=== PATIENT | male | born 1975 | race Two or more races ===

== ENCOUNTER 2016-08-25 10:42 | Emergency (ER) | payer MEDICAID ==
--- NOTE | 2016-08-25 10:46 | EDM.PDOC ---
ED HISTORY OF PRESENT ILLNESS - General Chief Complaint: Respiratory Problem Stated Complaint: SOB, BACK/NECK HURT Time Seen by Provider: 08/25/16 10:46 Source of Information: Reports: Patient, RN, RN notes reviewed History Limitations: Reports: No limitations - History of Present Illness INITIAL COMMENTS - FREE TEXT/NARRATIVE: C/O onset of fever, mild frontal ELLISON, upper abdominal pain with nausea, and sore throat yesterday. No known sick contacts. Symptom Onset Date: 08/24/16 Timing/Duration: Reports: Constant, Getting worse Quality: Reports: Ache Improves with: Reports: None Worsens with: Reports: None Context, General: Denies: Activity, Exercise, Lifting, Sick contact, Trauma Associated Symptoms (General): Reports: no other symptoms Treatments MOUNTER SMOKING PIPE: Reports: Acetaminophen - Related Data Allergies/ADRs: Allergies Allergy/AdvReac Type Severity Reaction Status Date / Time No Known Allergies Allergy Verified 12/01/15 20:37 Home Meds: Home Meds . [No Known Home Meds] 12/01/15 [History] Past Medical History Musculoskeletal History: Reports: Arthritis - Infectious Disease History Infectious Disease History: Reports: Measles - Past Surgical History HEENT Surgical History: Reports: Tonsillectomy, Other (see below) Other HEENT Surgeries/Procedures: tubes in ears when young GI Surgical History: Reports: Appendectomy Musculoskeletal Surgical History: Reports: Carpal tunnel, Shoulder surgery Social & Family History - Family History Family Medical History: Noncontributory - Tobacco Use Smoking Status *Q: Never Smoker Second Hand Smoke Exposure: Yes - Alcohol Use Days Per Week of Alcohol Use: 1 Number of Drinks Per Day: 4 Total Drinks Per Week: 4 - Recreational Drug Use Recreational Drug Use: No - Living Situation & Occupation Living situation: Reports: with family Occupation: unemployed ED ROS GENERAL - Review of Systems Review Of Systems: ROS reveals no pertinent complaints other than HPI. ED EXAM, GENERAL - Physical Exam Exam: See Below Exam Limited By: No limitations General Appearance: alert, WD/WN, no apparent distress Eye Exam: bilateral eye: normal inspection Ears: normal external exam, normal canal, hearing grossly normal, normal TMs Nose: normal inspection, normal mucosa, no blood Throat/Mouth: Normal lips, Normal teeth, Normal gums, Other (pharyngeal erythema without exudates) Head: atraumatic, normocephalic Neck: normal inspection, supple, non-tender, full range of motion Respiratory/Chest: no respiratory distress, lungs clear, normal breath sounds, no accessory muscle use, chest non-tender Cardiovascular: regular rate, rhythm GI/Abdominal: normal bowel sounds, soft, non tender, no distention Back Exam: normal inspection Extremities: normal inspection Neurological: alert, oriented, CN II-XII intact, normal cognition, normal gait, no motor/sensory deficits Psychiatric: normal affect, normal mood Skin Exam: Warm, Dry, Intact, Normal color, No rash Course - Vital Signs Last Recorded V/S: Last Vital Signs Temp 36.1 C 08/25/16 10:48 Pulse 70 08/25/16 10:48 Resp 16 08/25/16 10:48 BP 144/102 H 08/25/16 10:48 Pulse Ox 99 08/25/16 10:48 - Orders/Labs/Meds Labs: Rapid strep: Positive Meds: Medications Discontinued Medications Generic Name Dose Route Start Last Admin Trade Name Freq PRN Reason Stop Dose Admin Penicillin G Procaine/Benzathine 1.2 millunits 08/25/16 11:28 08/25/16 11:38 Bicillin C-R 600/600 IM 08/25/16 11:29 1.2 millunits ONETIME ONE Administration Prednisone 60 mg 08/25/16 11:28 08/25/16 11:37 Prednisone PO 08/25/16 11:29 60 mg ONETIME ONE Administration Departure - Departure Time of Disposition: 11:29 Disposition: Home, Self-Care 01 Condition: good Clinical Impression: Strep pharyngitis Instructions: Strep Throat Forms: ED Department Discharge Additional Instructions: Rx: Amoxicillin 500mg Saltwater gargles. Follow up in clinic if no improving in 2 days.
[2016-08-25 10:49] VITALS: BP 144/102
[2016-08-25] MEDS ORDERED: Penicillin G Benzathine/Procaine 600-600 1.2 Millunits/2 ML Syringe IM ONE (11:28)
[2016-08-25] MEDS ORDERED: predniSONE 20 MG Tab PO ONE (11:28)
== END 2016-08-25 11:59 | disposition home or self-care (01) ==
LOC: DL.ED 10:42
DX: J02.0 Streptococcal pharyngitis (principal); M19.90 Unspecified osteoarthritis, unspecified site; Z98.890 Other specified postprocedural states; Z90.49 Acquired absence of other specified parts of digestive tract
CPT/HCPCS: 87430; 87804; 96372; 99284; A9270; J0558

== ENCOUNTER 2020-11-01 17:09 | Emergency (ER) | payer MEDICAID ==
[2020-11-01 19:12] VITALS: BP 163/109; PULSE 88
== END 2020-11-01 19:45 | disposition left against medical advice (07) ==
LOC: DL.ED 17:09
DX: J02.9 Acute pharyngitis, unspecified (principal); Z53.21 Procedure and treatment not carried out due to patient leaving prior to being seen by health care provider

== ENCOUNTER 2020-11-02 21:43 | Emergency (ER) | payer MEDICAID ==
--- NOTE | 2020-11-02 22:03 | EDM.PDOC ---
ED HPI GENERAL MEDICAL PROBLEM - General Chief Complaint: General Stated Complaint: SORE THROAT, RUNNY NOSE, BOIL ON BUTT PER PT Time Seen by Provider: 11/02/20 22:03 Source of Information: Reports: Patient, RN, RN Notes Reviewed History Limitations: Reports: No Limitations - History of Present Illness INITIAL COMMENTS - FREE TEXT/NARRATIVE: Patient is a 45-year-old male who presents to ER with complaint of cold symptoms that began yesterday. Patient states stuffy nose, nasal drainage, sore throat. Patient states yesterday he did have headache and body aches. States today that is improved. Patient denies being exposed to Covid, denies ever having Covid, and denies being vaccinated. Patient denies any fever, nausea, vomiting, diarrhea, chest pains, shortness of breath. Patient also complains of pain and tenderness around the rectal area. He states this began yesterday as well. Is unsure if he has a boil or a sore, or a rash. Onset Date: 11/01/20 - Related Data Allergies Allergy/AdvReac Type Severity Reaction Status Date / Time No Known Allergies Allergy Verified 11/02/20 21:57 Home Meds: Home Meds . [No Known Home Meds] 12/01/15 [History] Past Medical History Cardiovascular History: Reports: None Respiratory History: Reports: None Gastrointestinal History: Reports: None Genitourinary History: Reports: None Musculoskeletal History: Reports: Arthritis Neurological History: Reports: None Psychiatric History: Reports: None Endocrine/Metabolic History: Reports: None Hematologic History: Reports: None Immunologic History: Reports: None Oncologic (Cancer) History: Reports: None Dermatologic History: Reports: None - Infectious Disease History Infectious Disease History: Reports: Measles - Past Surgical History HEENT Surgical History: Reports: Tonsillectomy, Other (See Below) Other HEENT Surgeries/Procedures: tubes in ears when young Cardiovascular Surgical History: Reports: None GI Surgical History: Reports: Appendectomy Musculoskeletal Surgical History: Reports: Carpal Tunnel, Shoulder Surgery Social & Family History - Family History Family Medical History: No Pertinent Family History - Caffeine Use Caffeine Use: Reports: Coffee - Living Situation & Occupation Living situation: Reports: with Family Occupation: Unemployed ED ROS GENERAL - Review of Systems Review Of Systems: Comprehensive ROS is negative, except as noted in HPI. ED EXAM, GENERAL - Physical Exam Exam: See Below Exam Limited By: No Limitations General Appearance: Alert, WD/WN, No Apparent Distress Eye Exam: Bilateral Eye: EOMI, Normal Inspection Ears: Normal External Exam, Hearing Grossly Normal Nose: Normal Inspection, Nasal Drainage Throat/Mouth: Normal Inspection, Normal Voice, No Airway Compromise Head: Atraumatic, Normocephalic Neck: Normal Inspection, Supple, Non-Tender, Full Range of Motion Respiratory/Chest: No Respiratory Distress, Lungs Clear, Normal Breath Sounds, No Accessory Muscle Use, Chest Non-Tender Cardiovascular: Normal Peripheral Pulses, Regular Rate, Rhythm, No Edema, No Gallop, No JVD, No Murmur, No Rub Peripheral Pulses: 2+: Radial (L), Radial (R) GI/Abdominal: Normal Bowel Sounds, Soft, Non-Tender (Male) Exam: Deferred Rectal (Males) Exam: Other (No abscess noted, soft but slightly erythematous around the anus.). No: Hemorrhoids, Perirectal Abscess Back Exam: Normal Inspection, Full Range of Motion, NT Extremities: Normal Inspection, Normal Range of Motion, Non-Tender, Normal Capillary Refill, No Pedal Edema Neurological: Alert, Oriented, CN II-XII Intact, Normal Cognition, Normal Gait, Normal Reflexes, No Motor/Sensory Deficits Psychiatric: Normal Affect, Normal Mood Skin Exam: Warm, Dry, Intact, Normal Color, No Rash Lymphatic: No Adenopathy Course - Vital Signs Last Recorded V/S: Last Vital Signs Temp 98 F 11/02/20 21:57 Pulse 88 11/02/20 21:57 Resp 18 11/02/20 21:57 BP 159/99 H 11/02/20 21:57 Pulse Ox 98 11/02/20 21:57 - Orders/Labs/Meds Orders: Active Orders 24 hr Category Date Time Status CULTURE STREP A CONFIRMATION [RM] Stat Lab 11/02/20 22:20 Results STREP SCRN A RAPID W CULT CONF [RM] Stat Lab 11/02/20 22:20 Results Labs: Laboratory Tests 11/02/20 Range/Units 22:20 Influenza Type A RNA Negative (NEGATIVE) Influenza Type B RNA Negative (NEGATIVE) SARS-CoV-2 RNA (TANYA) Negative (NEGATIVE) Departure - Departure Time of Disposition: 23:15 Disposition: Home, Self-Care 01 Condition: Good Clinical Impression: Perirectal skin irritation, Viral upper respiratory illness - Discharge Information *PRESCRIPTION DRUG MONITORING PROGRAM REVIEWED*: No *COPY OF PRESCRIPTION DRUG MONITORING REPORT IN PATIENT RAFAEL: No Instructions: Upper Respiratory Infection, Adult, [id number], Viral Respiratory Infection, [id number] Forms: ED Department Discharge Additional Instructions: May use [id number] Preparation H cream or Desitin cream to the area as tolerated May use [id number] Sudafed or like decongestant as directed May use Tylenol and/or ibuprofen as directed for pain/fever Follow-up with your primary care provider in the clinic if no improvement Sepsis Event Note (ED) - Focused Exam Vital Signs: Vital Signs Temp Pulse Resp BP Pulse Ox 11/02/20 21:57 98 F 88 18 159/99 H 98 - My Orders Last 24 Hours: My Active Orders 11/02/20 22:20 CULTURE STREP A CONFIRMATION [RM] Stat STREP SCRN A RAPID W CULT CONF [] Stat - Assessment/Plan Last 24 Hours: My Active Orders 11/02/20 22:20 CULTURE STREP A CONFIRMATION [RM] Stat STREP SCRN A RAPID W CULT CONF [] Stat
[2020-11-02 22:08] VITALS: BP 159/99; PULSE 88
[2020-11-02 23:03] LABS: CORONAVIRUS COVID-19 NAA NEGATIVE (NEGATIVE)
== END 2020-11-02 23:20 | disposition home or self-care (01) ==
LOC: DL.ED 21:43
DX: J06.9 Acute upper respiratory infection, unspecified (principal); K62.89 Other specified diseases of anus and rectum; Z20.822 Contact with and (suspected) exposure to COVID-19
CPT/HCPCS: 0240U; 87081; 87430; 99282; 99283